=== PATIENT | male | born 1975 | race African-American/Black ===

== ENCOUNTER → 2020-10-19 | Day surgery (SDC) | payer BC ==
[~2020-10-19] MED LIST: Acetaminophen 500 MG TAB ONE; diphenhydrAMINE 50 MG/ML VIAL ONE
== END ==
LOC: CSHSDC 10-17 15:07
PROVIDERS: ATTEND Family Medicine
DX: U07.1 COVID-19 (principal); Z23 Encounter for immunization
CPT/HCPCS: 96365; 96374; J1200; J3490; M0243; Q0244